=== PATIENT | male | born 1990 | race African-American/Black ===

== ENCOUNTER 2021-06-02 07:04 | Emergency (ER) | payer OTHER ==
[~2021-06-02] VITALS: Ht 188 cm; Wt 84.1 kg
[2021-06-02] MEDS ORDERED: AMBI5TAB PO (07:13)
--- NOTE | 2021-06-02 07:58 | REP ---
INDICATION: r knee pain COMPARISON: None. TECHNIQUE: AP, lateral, bilateral oblique and sunrise views. FINDINGS: The osseous structures and joint spaces are intact and without evidence for acute fracture or dislocation. No joint effusion is appreciated. Lateral view demonstrates calcifications at the insertion of the quadriceps tendon to patella suggesting early tendinopathy. Mild prepatellar soft tissue swelling cannot be excluded. IMPRESSION: No acute fracture or dislocation. Early patellar tendinopathy. <Electronically signed by Zaire Alston > 06/02/21 [id number]
[2021-06-02 08:09] VITALS: BP 142/87
== END 2021-06-02 08:10 | disposition home or self-care (01) ==
LOC: M ED 07:04
DX: S89.91XA Unspecified injury of right lower leg, initial encounter (principal); M76.50 Patellar tendinitis, unspecified knee; X50.0XXA Overexertion from strenuous movement or load, initial encounter; Y92.9 Unspecified place or not applicable; Y93.9 Activity, unspecified; Y99.0 Civilian activity done for income or pay

== ENCOUNTER 2021-09-07 14:58 | Emergency (ER) | payer OTHER ==
[~2021-09-07] VITALS: Ht 188 cm; Wt 87.9 kg
[~2021-09-07 14:58] MED LIST: AMBI5TAB PO
[2021-09-07] MEDS ORDERED: PEPC1TAB5 PO (16:30)
[2021-09-07 16:47] LABS: BASO % 0.6 % (0.0-1.0); EOS # 0.1 10^3/uL (0.0-0.5); EOS % 2.2 % (0.0-3.0); HEMATOCRIT 43.1 % (42.0-52.0); HEMOGLOBIN 14.6 g/dl (13.5-17.5); LYMPH # 2.3 10^3/uL (1.5-5.0); LYMPH % 35.1 % (24.0-44.0); MEAN CORPUSCULAR HEMOGLOBIN 30.5 pg (27.0-33.0); MEAN CORPUSCULAR HGB CONC 33.9 g/dl (32.0-36.5); MEAN CORPUSCULAR VOLUME 90.2 fl (80.0-96.0); MONO # 0.5 10^3/uL (0.0-0.8); MONO % 7.4 % (2.0-8.0); NEUTROPHILS # 3.5 10^3/uL (1.5-8.5); NEUTROPHILS % 54.5 % (36.0-66.0); PLATELET COUNT, AUTOMATED 217 10^3/uL (150-450); RED BLOOD COUNT 4.78 10^6/uL (4.30-6.10); WHITE BLOOD COUNT 6.5 10^3/uL (4.0-10.0)
[2021-09-07 17:17] LABS: ALBUMIN 3.7 GM/DL (3.2-5.2); ALT/SGPT 27 U/L (12-78); BILIRUBIN,DIRECT 0.1 MG/DL (0.0-0.2); BILIRUBIN,TOTAL 0.5 MG/DL (0.2-1.0); BLOOD UREA NITROGEN 13 MG/DL (7-18); CALCIUM LEVEL 9.2 MG/DL (8.5-10.1); CARBON DIOXIDE LEVEL 29 MEQ/L (21-32); CHLORIDE LEVEL 107 MEQ/L (98-107); CREATININE FOR GFR 1.47 MG/DL (0.70-1.30); GLOMERULAR FILTRATION RATE > 60.0 (>60); GLUCOSE, FASTING 85 MG/DL (70-100); LIPASE 189 U/L (73-393); POTASSIUM SERUM 4.2 MEQ/L (3.5-5.1); SODIUM LEVEL 142 MEQ/L (136-145); TOTAL PROTEIN 7.3 GM/DL (6.4-8.2)
[2021-09-07 17:34] VITALS: BP 118/78
== END 2021-09-07 17:37 | disposition home or self-care (01) ==
LOC: M ED 14:58
DX: R10.9 Unspecified abdominal pain (principal); Z82.49 Family history of ischemic heart disease and other diseases of the circulatory system; Z90.89 Acquired absence of other organs; Z91.018 Allergy to other foods